=== PATIENT | female | born 1945 | race Hispanic/Latino ===

== ENCOUNTER 2021-08-28 07:06 | Observation (INO) | payer OTHER, MEDICARE ==
[2021-08-25 11:30] LABS: BILIRUBIN,URINE Negative (NEGATIVE); COLOR,URINE Yellow (YELLOW); GLUCOSE, URINE (UA) >=1000 mg/dL (NEGATIVE); KETONES,URINE Negative (NEGATIVE); LEUKOCYTE ESTERASE ,URINE Negative (NEGATIVE); NITRATE,URINE Negative (NEGATIVE); OCCULT BLOOD,URINE Negative (NEGATIVE); PROTEIN,URINE Negative (NEGATIVE)
[2021-08-25 11:30] LABS: PROTHROMBIN TIME 10.9 SEC (9.6-11.6)
[2021-08-25 11:36] LABS: APPEARANCE,URINE CLEAR (CLEAR)
[2021-08-25 12:08] LABS: BACTERIA,URINE Few /HPF (None Seen); RBC,URINE 0-1 /HPF (0-1); SQUAMOUS EPITHELIAL CELL,UR 0-2 /HPF (0-2)
[2021-08-28] VITALS (22 sets, daily range): BP systolic 126–168; BP diastolic 50–70
[~2021-08-28] VITALS: Ht 162.6 cm; Wt 90.5 kg
[~2021-08-28 07:06] MED LIST: AMLO2.5T4 PO; ATOR20TA65 PO; DICL100G31 TP; DULO30CA52 PO; FISH1CAP27 PO; INSU100I21 SQ; INSU100I3 SQ; LOSA100T58 PO; METO-409 PO; NAPR-1023 PO; PANT40TA PO; SITA1TAB6 PO
[2021-08-28] MEDS ORDERED: 0.9%NACL 1000ML 1,000 ML IV ONE (07:47)
[2021-08-28] MEDS: CEFAZOLIN SODIUM 1 GM VIAL IVP ONE ×2 (08:31→12:43)
[2021-08-28] MEDS ORDERED: ACETAMINOPHEN 500 MG TABLET ONE (09:41)
[2021-08-28] MEDS ORDERED: CELECOXIB 200 MG CAP ONE (09:41)
[2021-08-28] MEDS ORDERED: KETOROLAC 15MG/ML VIAL (15MG/ML) ONE (09:41)
[2021-08-28] MEDS ORDERED: CEFAZOLIN SODIUM 1 GM VIAL ONE (11:10)
[2021-08-28] MEDS ORDERED: TRANEXAMIC ACID 1000MG/10ML ONE ×2 (11:11→15:22)
[2021-08-28] MEDS ORDERED: LIDOCAINE PF 100MG/5ML (2%) SYRINGE 5ML ONE (12:03)
[2021-08-28] MEDS ORDERED: SUCCINYLCHOLINE CHLORIDE 20 MG/ML 10 ML VIAL ONE (12:03)
[2021-08-28] MEDS ORDERED: PROPOFOL 10 MG/ML 20ML VIAL IV ONE (12:05)
[2021-08-28] MEDS ORDERED: DEXAMETHASONE SOD PHOSPHATE 10MG/ML 1ML VIAL ONE (12:05)
[2021-08-28] MEDS ORDERED: GLYCOPYRROLATE 1 MG/5 ML SYRINGE ONE (12:05)
[2021-08-28] MEDS ORDERED: MIDAZOLAM HCL 1 MG/ML 2ML VIAL ONE (12:05)
[2021-08-28] MEDS ORDERED: ROCURONIUM 10MG/1ML SYR 10 MG/ML ML ONE ×2 (12:06→13:16)
[2021-08-28] MEDS ORDERED: FENTANYL CITRATE PF 50 MCG/1 ML 2ML VIAL ONE (12:06)
[2021-08-28] MEDS ORDERED: NEOSTIGMINE 5MG/5ML SYR IV ONE (12:06)
[2021-08-28] MEDS ORDERED: ROPIVACAINE 0.5% 5MG/ML 30ML IJ ONE ×2 (12:08→12:10)
[2021-08-28] MEDS ORDERED: EPHEDRINE SULFATE 50 MG/ML AMPULE ONE (13:37)
[2021-08-28] MEDS ORDERED: KCL 20 MEQ ERTAB PO PRN (15:00)
[2021-08-28] MEDS ORDERED: DiphenhydrAMINE HCL 50 MG/ML VIAL IVP PRN (15:00)
[2021-08-28] MEDS ORDERED: POTASSIUM CHLORIDE 10% ELIXIR 20 MEQ/15 ML UDCUP PO PRN (15:00)
[2021-08-28] MEDS ORDERED: TRAMADOL HCL 50 MG TABLET PO PRN (15:00)
[2021-08-28] MEDS ORDERED: LIDOCAINE HCL-MPF 1% 2ML VIAL IV PRN (15:00)
[2021-08-28] MEDS ORDERED: TEMAZEPAM 15 MG CAPSULE PO PRN (15:00)
[2021-08-28] MEDS ORDERED: CALCIUM CARB 500MG PO PRN (15:00)
[2021-08-28] MEDS ORDERED: FERROUS FUMARATE 324 MG TABLET PO PRN (15:00)
[2021-08-28] MEDS ORDERED: OXYCODONE HCL 5 MG TAB PO PRN (15:00)
[2021-08-28] MEDS ORDERED: POTASSIUM CHLORIDE 20MEQ/100ML 100 ML IV PRN (15:00)
[2021-08-28] MEDS ORDERED: KETOROLAC 15MG/ML VIAL (15MG/ML) IV PRN (15:00)
[2021-08-28] MEDS ORDERED: ONDANSETRON 4MG INJ IVP PRN (15:00)
[2021-08-28] MEDS: ACETAMINOPHEN 500 MG TABLET PO SCH ×2 (15:00→23:17)
[2021-08-28] MEDS: INSULIN HUMULIN R 100 UNIT/ML 3ML SQ SCH ×2 (16:30→21:00)
[2021-08-28] MEDS: 0.9%NACL 1000ML 1,000 ML IV SCH (16:59)
[2021-08-28 19:00] LABS: APPEARANCE BODY FLUID SLIGHTLY CLOUDY (CLEAR); BODY FLUID WBC 113 /cu. mm.; COLOR,BODY FLUID LT YELLOW (LT YELLOW); SPECIMENTYPE,BODY FLUID SYNOVIAL; TOTAL VOLUME,BODY FLUID 5 mL
[2021-08-28 19:01] LABS: BODY FLUID RBC 320 /cu. mm.
[2021-08-28 19:12] LABS: BF LYMPHOCYTE 3 %; BF MONOCYTE 7 %
[2021-08-28] MEDS: ATORVASTATIN 20 MG TABLET PO SCH (20:43)
[2021-08-28] MEDS: CELECOXIB 200 MG CAP PO SCH (20:43)
[2021-08-28] MEDS: ASPIRIN 81 MG EC TAB PO SCH (20:43)
[2021-08-28] MEDS: CEFAZOLIN SODIUM 1 GM VIAL IVP SCH (20:44)
[2021-08-28] MEDS: AMLODIPINE 2.5 MG TAB PO SCH (20:44)
[2021-08-28] MEDS: OXYCODONE HCL 5 MG TAB PO PRN (20:47)
[2021-08-28] MEDS: SITAGLIPTIN PHOS PO SCH (20:54)
[2021-08-28] MEDS: METFORMIN HCL PO SCH (20:54)
[2021-08-28] MEDS: INSULIN LISPRO 100 UNIT/ML 3ML SQ SCH (20:56)
[2021-08-28] MEDS: INSULIN GLARGINE 100 UNITS/ML 10 ML VIAL SQ SCH (20:57)
[2021-08-29] MEDS: CEFAZOLIN SODIUM 1 GM VIAL IVP SCH (03:13)
[2021-08-29] MEDS: 0.9%NACL 1000ML 1,000 ML IV SCH ×2 (03:17→10:43)
[2021-08-29 04:06] VITALS: BP 134/56
[2021-08-29 04:17] LABS: HEMATOCRIT 36.7 % (36-48); MEAN CORPUSCULAR HEMOGLOBIN 27.3 pg (27.0-33.0); MEAN CORPUSCULAR HGB CONC 30.2 g/dL (32.0-36.0); MEAN CORPUSCULAR VOLUME 90.4 fL (79-99); PLATELET COUNT (AUTO) 227 K/uL (130-400); RED BLOOD CELL COUNT(AUTO) 4.06 MIL/uL (4.00-5.50); RED CELL DISTRIBUTION WIDTH 12.4 % (11.0-15.5); WHITE BLOOD COUNT (AUTO) 10.4 K/uL (4.8-10.8)
[2021-08-29 04:25] LABS: CREATININE 0.8 mg/dL (0.5-1.5); POTASSIUM 3.8 mmol/L (3.5-5.1)
[2021-08-29] MEDS: INSULIN HUMULIN R 100 UNIT/ML 3ML SQ SCH ×4 (06:24→21:00)
[2021-08-29] MEDS: ACETAMINOPHEN 500 MG TABLET PO SCH ×3 (06:26→20:57)
[2021-08-29 08:00] VITALS: BP 138/68
[2021-08-29] MEDS: LOSARTAN 100 MG TABLET PO SCH (08:07)
[2021-08-29] MEDS: METOPROLOL SUCCINATE 50 MG TAB.SR.24H PO SCH (08:08)
[2021-08-29] MEDS: OXYCODONE HCL 5 MG TAB PO PRN ×2 (08:08→13:51)
[2021-08-29] MEDS: PANTOPRAZOLE 40 MG TAB DR PO SCH (08:08)
[2021-08-29] MEDS: FISH OIL 1000 MG/CAP PO SCH (08:08)
[2021-08-29] MEDS: ASPIRIN 81 MG EC TAB PO SCH ×2 (08:08→20:53)
[2021-08-29] MEDS: DULOXETINE HCL 30 MG CAP PO SCH (08:08)
[2021-08-29] MEDS: METFORMIN HCL PO SCH ×2 (08:09→21:00)
[2021-08-29] MEDS: POLYETHYLENE GLYCOL 3350 17 GM POWD.PACK PO SCH (08:09)
[2021-08-29] MEDS: SITAGLIPTIN PHOS PO SCH ×2 (08:09→21:00)
[2021-08-29] MEDS: CELECOXIB 200 MG CAP PO SCH ×2 (08:09→20:53)
[2021-08-29] MEDS: INSULIN GLARGINE 100 UNITS/ML 10 ML VIAL SQ SCH ×2 (08:32→21:01)
[2021-08-29] MEDS: INSULIN LISPRO 100 UNIT/ML 3ML SQ SCH ×2 (08:32→21:02)
[2021-08-29 10:53] VITALS: BP 138/69
[2021-08-29] MEDS: NITROFURANTOIN MONOHYD/M-CRYST 100 MG CAPSULE PO SCH ×2 (11:48→20:53)
[2021-08-29 16:07] VITALS: BP 139/61
[2021-08-29 20:28] VITALS: BP 121/60
[2021-08-29] MEDS: ATORVASTATIN 20 MG TABLET PO SCH (20:53)
[2021-08-29] MEDS: AMLODIPINE 2.5 MG TAB PO SCH (20:53)
[2021-08-30 00:07] VITALS: BP 132/61
[2021-08-30 04:56] VITALS: BP 157/65
[2021-08-30] MEDS: INSULIN HUMULIN R 100 UNIT/ML 3ML SQ SCH ×2 (06:20→11:28)
[2021-08-30] MEDS: ACETAMINOPHEN 500 MG TABLET PO SCH (06:23)
[2021-08-30] MEDS: OXYCODONE HCL 5 MG TAB PO PRN (06:25)
[2021-08-30 08:08] VITALS: BP 136/85
[2021-08-30] MEDS: SITAGLIPTIN PHOS PO SCH (09:00)
[2021-08-30] MEDS: INSULIN LISPRO 100 UNIT/ML 3ML SQ SCH (09:00)
[2021-08-30] MEDS: METFORMIN HCL PO SCH (09:00)
[2021-08-30] MEDS: ASPIRIN 81 MG EC TAB PO SCH (10:34)
[2021-08-30] MEDS: CELECOXIB 200 MG CAP PO SCH (10:34)
[2021-08-30] MEDS: DULOXETINE HCL 30 MG CAP PO SCH (10:35)
[2021-08-30] MEDS: LOSARTAN 100 MG TABLET PO SCH (10:35)
[2021-08-30] MEDS: PANTOPRAZOLE 40 MG TAB DR PO SCH (10:36)
[2021-08-30] MEDS: NITROFURANTOIN MONOHYD/M-CRYST 100 MG CAPSULE PO SCH (10:36)
[2021-08-30] MEDS: FISH OIL 1000 MG/CAP PO SCH (10:36)
[2021-08-30] MEDS: METOPROLOL SUCCINATE 50 MG TAB.SR.24H PO SCH (10:37)
[2021-08-30] MEDS: POLYETHYLENE GLYCOL 3350 17 GM POWD.PACK PO SCH (10:41)
[2021-08-30] MEDS: INSULIN GLARGINE 100 UNITS/ML 10 ML VIAL SQ SCH (10:44)
[2021-08-30 11:24] VITALS: BP 148/64
[2021-08-30 11:35] VITALS: BP 127/62
[2021-08-30] MEDS ORDERED: HYDR-4060 PO (13:12)
[2021-08-30] MEDS ORDERED: AEC81 PO (13:12)
[2021-08-31] MEDS ORDERED: BISACODYL 10 MG SUPP.RECT RC PRN (15:00)
== END 2021-08-30 16:28 | disposition home health service (06) ==
LOC: DAH 07:06 → DAHIP 07:07 → 4BH 16:10
PROVIDERS: ADMIT Orthopaedic Surgery; ATTEND Orthopaedic Surgery
DX: T84.092A Other mechanical complication of internal right knee prosthesis, initial encounter (principal); Z20.822 Contact with and (suspected) exposure to COVID-19; M24.661 Ankylosis, right knee; E11.9 Type 2 diabetes mellitus without complications; I10 Essential (primary) hypertension; E66.9 Obesity, unspecified; E78.5 Hyperlipidemia, unspecified; I25.10 Atherosclerotic heart disease of native coronary artery without angina pectoris; Z79.899 Other long term (current) drug therapy; Z90.710 Acquired absence of both cervix and uterus; Z96.653 Presence of artificial knee joint, bilateral
CPT/HCPCS: 27334; 27486; 36415 ×2; 80048; 81001; 82948 ×9; 85027; 85610; 87070; 87076; 87077; 87088; 87186; 87205; 87635; 87641; 88300; 88305; 88311; 89051; 96372 ×3; 96374; 96375; 96376; 97039 ×2; 97116 ×3; 97161; 97530 ×2; A4213; A4215; A4221; A4222; A4223; A4649 ×5; A4663; A4930 ×2; A5120; A9272; C1776 ×2; C9803; G0378 ×47; J0330; J0690 ×4; J1100; J1885 ×2; J2001; J2250; J2704; J2710; J2795 ×2; J3010; J3490 ×4; J7030 ×3